=== PATIENT | male | born 1955 | race Caucasian/White ===

== ENCOUNTER 2021-04-29 11:40 | Inpatient (IN) | payer BC, MEDICARE ==
[~2021-04-29 11:40] MED LIST: Iopamidol 300 61% 100 ML VIAL FS ONE
[2021-04-29 12:53] LABS: INR-International Normal Ratio 1.2; PTT 29.1 sec (22.9-36.1)
[2021-04-29] MEDS ORDERED: Morphine 2 MG/ML VIAL SLOW IVP PRN ×2 (14:47→14:53)
[2021-04-29] MEDS ORDERED: Acetaminophen 325 MG TAB PO PRN (14:48)
[2021-04-29] MEDS ORDERED: HYDROcodone/Acetaminophen 5/325 mg Tablet PO PRN (14:48)
[2021-04-29] MEDS ORDERED: Calcium Carbonate 500 MG ChewTAB PO PRN (14:48)
[2021-04-29] MEDS ORDERED: Morphine 4 MG/ML VIAL SLOW IVP PRN (14:52)
[2021-04-29] MEDS ORDERED: cloNIDine 0.1 MG TAB PO PRN (14:52)
[2021-04-29] MEDS ORDERED: cefTRIAXone\\ROCEPHIN 2 GM in Sodium Chloride 0.9% 100 ML IVPB SCH (16:00)
[2021-04-29] MEDS ORDERED: cefTRIAXone\\ROCEPHIN 2 GM VIAL ONE (16:21)
[2021-04-29] MEDS ORDERED: Sodium Chloride 0.9% 100 ML ONE (16:26)
[2021-04-29] MEDS: Sodium Chloride 0.9% 1,000 ML IV SCH ×2 (17:47→23:37)
[2021-04-29 17:52] VITALS: BMI 22.4
[2021-04-29] MEDS: Acetaminophen 325 MG TAB PO SCH ×2 (18:03→21:08)
[2021-04-29] MEDS ORDERED: Senokot S 8.6-50 MG TAB PO SCH (21:00)
[2021-04-29] MEDS: clonazePAM 1 MG TAB PO SCH (21:08)
[2021-04-29] MEDS: Saccharomyces boulardii 250 MG CAP PO SCH (21:08)
[2021-04-29] MEDS: Senokot S 8.6-50 MG TAB PO SCH (21:09)
[2021-04-30] MEDS: Sodium Chloride 0.9% 1,000 ML IV SCH ×5 (04:30→23:37)
[2021-04-30] MEDS ORDERED: Acetaminophen 500 MG TAB PO PRN (04:58)
[2021-04-30] MEDS ORDERED: Ibuprofen 200 MG TAB PO SCH (05:15)
[2021-04-30 05:39] LABS: Anion Gap 10 mmol/L (10-20); BUN (Urea Nitrogen) 28 mg/dL (8.4-25.7); Calc. Creatinine Clearance 54 mL/min (70-130); Calcium 7.8 mg/dL (7.8-10.44); Carbon Dioxide 22 mmol/L (23-31); Chloride 103 mmol/L (98-107); Glucose 108 mg/dL (80-115); Potassium 3.9 mmol/L (3.5-5.1); Sodium 131 mmol/L (136-145)
[2021-04-30 05:58] LABS: Band 21 % (5-11); Hemoglobin 11.9 g/dL (14.0-18.0); Lymphocytes 5 % (21-51); MDiff Complete? YES; Mean Corpuscular Hemoglobin 32.1 pg (27.0-31.0); Mean Corpuscular Volume 91.7 fL (78.0-98.0); Monocytes 14 % (0-10); Neutrophil 60 % (42-75); Platelet Count 96 thou/uL (130-400); Platelet Morphology Comment Appears Decreased; RBC Distribution Width 11.5 % (11.5-14.5); Red Blood Cell (RBC) Count 3.71 mill/uL (4.70-6.10); White Blood Cell (WBC) Count 6.9 thou/uL (4.8-10.8)
[2021-04-30] MEDS: Senokot S 8.6-50 MG TAB PO SCH ×2 (08:32→20:53)
[2021-04-30] MEDS: VANCOMYCIN 1.25 GM/250 ML BAG 1.25 GM in Premix Bag 1 BAG IVPB SCH (16:15)
[2021-04-30] MEDS: Saccharomyces boulardii 250 MG CAP PO SCH (20:53)
[2021-04-30] MEDS: clonazePAM 1 MG TAB PO SCH (20:53)
[2021-05-01] MEDS: VANCOMYCIN 1.25 GM/250 ML BAG 1.25 GM in Premix Bag 1 BAG IVPB SCH ×2 (04:39→16:49)
[2021-05-01 06:16] LABS: Hemoglobin 11.4 g/dL (14.0-18.0); Mean Corpuscular HGB CONC 34.6 g/dL (32.0-36.0); Mean Corpuscular Hemoglobin 31.9 pg (27.0-31.0); Mean Corpuscular Volume 92.3 fL (78.0-98.0); Mean Platelet Volume 9.7 fL (7.4-10.4); Platelet Count 112 thou/uL (130-400); RBC Distribution Width 11.7 % (11.5-14.5); Red Blood Cell (RBC) Count 3.56 mill/uL (4.70-6.10); White Blood Cell (WBC) Count 6.6 thou/uL (4.8-10.8)
[2021-05-01 06:29] LABS: Anion Gap 8 mmol/L (10-20); BUN (Urea Nitrogen) 20 mg/dL (8.4-25.7); Calc. Creatinine Clearance 67 mL/min (70-130); Calcium 8.7 mg/dL (7.8-10.44); Carbon Dioxide 24 mmol/L (23-31); Chloride 109 mmol/L (98-107); Glucose 99 mg/dL (80-115); Sodium 137 mmol/L (136-145)
[2021-05-01 06:54] LABS: Band 14 % (5-11); Eosinophils 2 % (0-10); Lymphocytes 13 % (21-51); MDiff Complete? YES; Monocytes 9 % (0-10); Neutrophil 62 % (42-75); Platelet Morphology Comment Appears Decreased
[2021-05-01] MEDS: Sodium Chloride 0.9% 1,000 ML IV SCH ×3 (08:21→20:34)
[2021-05-01] MEDS: Senokot S 8.6-50 MG TAB PO SCH ×2 (08:21→20:33)
[2021-05-01] MEDS: clonazePAM 1 MG TAB PO SCH (20:34)
[2021-05-01] MEDS: Saccharomyces boulardii 250 MG CAP PO SCH (20:34)
[2021-05-02 03:34] LABS: #Eosinphils 0.1 thou/uL (0.0-0.7); #Monocytes 0.9 thou/uL (0.11-0.59); #Neutrophils 3.9 thou/uL (1.40-6.50); %Basophils 0.5 % (0.0-1.0); %Eosinophils 2.4 % (0.0-10.0); %Lymphocytes 17.1 % (21.0-51.0); %Monocytes 14.3 % (0.0-10.0); %Neutrophils 65.7 % (42.0-75.0); Hemoglobin 11.2 g/dL (14.0-18.0); Mean Corpuscular HGB CONC 33.2 g/dL (32.0-36.0); Mean Corpuscular Hemoglobin 30.6 pg (27.0-31.0); Mean Corpuscular Volume 92.3 fL (78.0-98.0); Mean Platelet Volume 8.7 fL (7.4-10.4); Platelet Count 139 thou/uL (130-400); RBC Distribution Width 11.8 % (11.5-14.5); Red Blood Cell (RBC) Count 3.66 mill/uL (4.70-6.10)
[2021-05-02 04:04] LABS: Anion Gap 9 mmol/L (10-20); BUN (Urea Nitrogen) 18 mg/dL (8.4-25.7); Calc. Creatinine Clearance 70 mL/min (70-130); Calcium 8.5 mg/dL (7.8-10.44); Carbon Dioxide 23 mmol/L (23-31); Chloride 110 mmol/L (98-107); Glucose 98 mg/dL (80-115); Potassium 4.1 mmol/L (3.5-5.1); Sodium 138 mmol/L (136-145)
[2021-05-02 04:40] LABS: Vancomycin, Trough 13.7 ug/mL
[2021-05-02] MEDS: VANCOMYCIN 1.25 GM/250 ML BAG 1.25 GM in Premix Bag 1 BAG IVPB SCH (04:47)
[2021-05-02] MEDS: Sodium Chloride 0.9% 1,000 ML IV SCH ×2 (04:48→11:45)
[2021-05-02] MEDS: Senokot S 8.6-50 MG TAB PO SCH (08:19)
[2021-05-02 12:18] VITALS: BP 139/74; TEMP 98.6
== END 2021-05-02 12:21 | disposition home or self-care (01) | DRG 872 ==
LOC: SDC/OP 11:40 → T4-B 13:15
PROVIDERS: ADMIT Internal Medicine; ATTEND Hospitalist
PROC: 0T9430Z Drainage of Left Kidney Pelvis with Drainage Device, Percutaneous Approach (ICD-10-PCS; principal; 2021-04-29)
DX: A41.81 Sepsis due to Enterococcus (principal); N13.6 Pyonephrosis; N17.9 Acute kidney failure, unspecified; E87.1 Hypo-osmolality and hyponatremia; N13.9 Obstructive and reflux uropathy, unspecified; G25.0 Essential tremor; G24.3 Spasmodic torticollis; R65.20 Severe sepsis without septic shock; N18.2 Chronic kidney disease, stage 2 (mild); D69.6 Thrombocytopenia, unspecified; Z79.899 Other long term (current) drug therapy; Z82.49 Family history of ischemic heart disease and other diseases of the circulatory system; Z80.1 Family history of malignant neoplasm of trachea, bronchus and lung
CPT/HCPCS: 36415; 50430; 50433; 80048; 80202; 85025; 85610; 85730; 87040; 87077; 87086; 87186; C1729; J0696; J1956; J3370; J3490; Q9967

== ENCOUNTER 2021-05-05 14:36 | Outpatient (CLI) | payer BC, MEDICARE ==
[2021-05-05 16:48] LABS: Hemoglobin 11.8 g/dL (13.5-17.5); Mean Corpuscular HGB CONC 33.1 g/dL (32.0-36.0); Mean Corpuscular Hemoglobin 29.7 pg (27.0-33.0); Mean Corpuscular Volume 89.7 fl (81.2-95.1); Mean Platelet Volume 10.1 fl (7.4-10.4); Platelet Count 351 10x3/uL (150-450); RBC Distribution Width 12.4 % (11.5-14.5); Red Blood Cell (RBC) Count 3.97 10x6/uL (4.32-5.72); White Blood Cell (WBC) Count 5.4 10x3/uL (3.5-10.5)
[2021-05-05 17:07] LABS: Anion Gap 15 mmol/L (10-20); BUN (Urea Nitrogen) 18 mg/dL (8.4-25.7); Calc. Creatinine Clearance 0 mL/min (70-130); Calcium 9.4 mg/dL (7.8-10.44); Carbon Dioxide 25 mmol/L (23-31); Chloride 104 mmol/L (98-107); Glucose 136 mg/dL (80-115); Potassium 4.2 mmol/L (3.5-5.1); Sodium 140 mmol/L (136-145)
[2021-05-05 17:23] LABS: INR-International Normal Ratio 1.1; PTT 27.9 sec (22.0-33.0); Prothrombin Time 11.6 sec (9.5-12.1)
== END 2021-05-05 14:37 | disposition home or self-care (01) ==
LOC: LABBT 14:36
PROVIDERS: ATTEND Urology
DX: Z01.818 Encounter for other preprocedural examination (principal); N20.2 Calculus of kidney with calculus of ureter; Z12.5 Encounter for screening for malignant neoplasm of prostate; N39.0 Urinary tract infection, site not specified; R35.0 Frequency of micturition
CPT/HCPCS: 80048; 85027; 85610; 85730

== ENCOUNTER 2021-05-12 08:00 | Day surgery (SDC) | payer BC ==
[2021-05-09 08:30] VITALS: BMI 21.7
[2021-05-12] MEDS ORDERED: Piperacillin/Tazobactam 3.375 GM VIAL ONE (08:27)
[2021-05-12] MEDS ORDERED: Sodium Chloride 0.9% 100 ML ONE (08:27)
[2021-05-12] MEDS ORDERED: Iothalamate Meglumine 60% 50 ML VIAL FS ONE (09:32)
[2021-05-12] MEDS ORDERED: Fentanyl 100 MCG/2 ML VIAL ONE (09:44)
[2021-05-12] MEDS ORDERED: SUGAMMADEX SODIUM 200 MG/2 ML VIAL ONE (10:01)
[2021-05-12] MEDS ORDERED: Ondansetron PF 4 MG/2 ML Vial ONE (10:16)
[2021-05-12] MEDS ORDERED: PROPOFOL 200 MG/20 ML VIAL ONE (10:16)
[2021-05-12] MEDS ORDERED: Lidocaine 1% PF 5 ML VIAL ONE (10:16)
[2021-05-12] MEDS ORDERED: Rocuronium Bromide 10 MG/ML (10ML VIAL) ONE (10:16)
[2021-05-12] MEDS ORDERED: Dexamethasone 20 MG/5 ML VIAL ONE (10:16)
[2021-05-12] MEDS ORDERED: Phenazopyridine HCl 100 MG TAB ONE (11:17)
== END 2021-05-12 13:11 | disposition home or self-care (01) ==
LOC: SDC 08:00
PROVIDERS: ATTEND Urology
PROC: 0T778DZ Dilation of Left Ureter with Intraluminal Device, Via Natural or Artificial Opening Endoscopic (ICD-10-PCS; principal; 2021-05-12)
PROC: 0TC78ZZ Extirpation of Matter from Left Ureter, Via Natural or Artificial Opening Endoscopic (ICD-10-PCS; principal; 2021-05-12)
DX: N13.2 Hydronephrosis with renal and ureteral calculous obstruction (principal); N39.0 Urinary tract infection, site not specified
CPT/HCPCS: 74018; 74420; 82365; 88300; J1100; J2405; J2543; J2704; J3010; J3490; Q9961